=== PATIENT | male | born 1975 | race Asian ===

== ENCOUNTER 2017-04-20 07:31 | Emergency (ER) | payer BC ==
[2017-04-20] MEDS: LIDOCAINE 1% (MDV) 20 ML INJ SC (10:21)
[2017-04-20] MEDS: HYDROCODONE/APAP (10/325) TAB PO (10:43)
== END 2017-04-20 11:09 | disposition home or self-care (01) ==
LOC: FTE 07:31
DX: L02.31 Cutaneous abscess of buttock (principal); I10 Essential (primary) hypertension
CPT/HCPCS: 10060; 76536; 99284-25

== ENCOUNTER → 2017-08-24 | Outpatient (CLI) | payer BC | END | disposition home or self-care (01) | LOC: RAD 11:26 | DX: R76.11 Nonspecific reaction to tuberculin skin test without active tuberculosis (principal) | CPT/HCPCS: 71046 ==